=== PATIENT | female | born 1965 | race Asian ===

== ENCOUNTER 2018-01-08 05:04 | Day surgery (SDC) | payer OTHER ==
[2017-12-20 16:44] VITALS: BMI 22.3
[2018-01-08] MEDS ORDERED: PROPOFOL 20 ML ONE ×2 (08:44)
[2018-01-08] MEDS ORDERED: MIDAZOLAM HCL 2 MG/2 ML SINGLE DOSE VIAL ONE (08:44)
[2018-01-08] MEDS ORDERED: ceFAZolin SODIUM 1 GM VIAL ONE (08:44)
[2018-01-08] MEDS ORDERED: LIDOCAINE HCL/PF 2% SDV 5ML VIAL ONE (08:44)
--- NOTE | 2018-01-08 09:31 | HP ---
[facility]ellite [facility] - Chief Complaint History of Present Illness: 52 year old woman with renal failure stage 4. She is being prepared for dialysis. - Past Medical History Allergies/Adverse Reactions: Allergies Allergy/AdvReac Type Severity Reaction Status Date / Time No Known Allergies Allergy Verified 12/20/17 16:45 Cardiovascular: Yes: HTN ...LMP Comment: lmp 2014 - Current Medications Current Medications: Home Medications Medication Instructions Recorded Iron Ps Complex/B12/Folic Acid 1 each PO DAILY 11/09/11 [Ferrex 150 Forte Capsule] Amlodipine Besylate 5 mg PO DAILY 12/20/17 Satellite Physical Exam - Physical Examination Vital Signs: Vital Signs Period Temp Pulse Resp BP Sys/Pittman Pulse Ox Last 24 Hr 98.4 F-98.4 F 75-75 18-18 147-147/81-81 General Appearance: Alert & Oriented x3 ENT: Clear Lung: Clear to auscultation Heart: Regular rate & rhythm Abdomen: Soft Extremities: No edema Satellite Impression/Plan - Impression/Plan Impression: CKD stage 4 Operative Procedure: Creation AV fistula left arm Date to be Performed: 01/08/18
[2018-01-08] MEDS ORDERED: SODIUM CHLORIDE 0.9% P/F 10 ML VIAL IJ ONE (09:49)
[2018-01-08] MEDS ORDERED: LIDOCAINE HCL 1%, 10 MG/ML (20ML VIAL) INF ONE ×2 (10:03)
[2018-01-08] MEDS ORDERED: POVIDONE-IODINE OINTMENT 10% - 28.4 GM TUBE TP ONE (11:01)
--- NOTE | 2018-01-08 11:08 | OP ---
Operative Note - Note: Operative Date: 01/08/18 Pre-Operative Diagnosis: Renal failure Operation: Creation AV fistula left arm Findings: Patent upper arm cephalic vein, brachial artery Post-Operative Diagnosis: Same as Pre-op Surgeon: Bernard Castañeda Automotive Painter: Susan Bazzi Anesthesiologist/ACCOUNT DIRECTOR: Ashwin Kelly Anesthesia: Fractional Estimated Blood Loss (mls): 10
[2018-01-08] MEDS ORDERED: oxyCODONE HCL 5 MG TABLET PO PRN (11:10)
[2018-01-08] MEDS ORDERED: ACETAMINOPHEN 325 MG TABLET (FP) PO PRN (11:10)
[2018-01-08] MEDS ORDERED: ONDANSETRON 4 MG/2 ML VIAL IVPUSH PRN (11:15)
--- NOTE | 2018-01-08 11:19 | SURG ---
Surgery Statistician Note Statistician: Susan Bazzi PA-C Date of Service: 01/08/18 Diagnosis: Renal failure Procedure: Creation AV fistula left arm I was present for the entirety of the operative procedure. For further detail, please refer to operative report. Visit type - Case Type Case Type: Scheduled Admission - Emergency Emergency Visit: No - New patient This patient is new to me today: Yes Date on this admission: 01/08/18
[2018-01-08 12:00] VITALS: TEMP 98.8
[2018-01-08] MEDS ORDERED: ACETAMINOPHEN 325 MG TABLET (FP) ONE ×2 (13:45→13:46)
[2018-01-08] MEDS ORDERED: ACETAMINOPHEN 325 MG TABLET (FP) PO ONE (13:50)
[2018-01-08 14:19] VITALS: BP 138/75; PULSE 72
--- NOTE | 2018-01-23 06:56 | OP ---
DATE OF OPERATION: 01/08/2018 SURGEON: Bernard Rosas M.D. RADIO RECORDER: Ricardo Brandt PROCEDURE: Creation of arteriovenous fistula in left arm. PREOPERATIVE DIAGNOSIS: Renal failure. POSTOPERATIVE DIAGNOSIS: Renal failure. ANESTHESIA: Fractional. ANESTHESIOLOGIST: Ashwin Kelly M.D. OPERATIVE FINDINGS: The upper arm cephalic vein was patent with adequate diameter for fistula creation. The brachial artery had a strong pulse. OPERATIVE PROCEDURE: Following routine patient identification, side and site verification, intravenous sedation was established. The left arm was prepped with Chloraprep. Timeout was performed. One percent lidocaine was infiltrated in the antecubital fossa and a longitudinal incision made. Subcutaneous tissues were divided. The antecubital vein was identified and was carefully mobilized from the surrounding tissues. Side branches were ligated and divided. The vein was ligated distally and incised. It was distended with heparin and papaverine solution. Number 5 and number 8 feeding tubes were passed proximally without resistance. The wound was deepened through the muscle fascia and the distal brachial artery identified. It was encircled proximally and distally with vessel loops. The vein was then freed and spatulated. The artery was occluded with the vessel loops and opened on its superficial surface with a longitudinal arteriotomy measuring approximately 6 mm. The end of the vein was anastomosed to the side of the artery with running suture of 6-0 Prolene. Following completion of the suture line, the artery was allowed to back bleed and flush, and the vein was flushed with heparin solution. Suture line was completed and all vessels released. There was good flow to the anastomosis with a palpable thrill in the vein proximally. Bleeding from the suture line was controlled with Surgicel. The wound was then irrigated and closed with interrupted suture of 3-0 Vicryl and skin radha. Sterile dressings were applied, and the patient was taken to the recovery room in stable condition. BERNARD ROSAS M.D. [id number]
== END 2018-01-08 14:24 | disposition home or self-care (01) ==
LOC: JASU-SURG 05:04
PROVIDERS: ATTEND Surgery
PROC: 03180ZD Bypass Left Brachial Artery to Upper Arm Vein, Open Approach (ICD-10-PCS; principal; 2018-01-08 09:30)
DX: I12.0 Hypertensive chronic kidney disease with stage 5 chronic kidney disease or end stage renal disease (principal); D64.9 Anemia, unspecified; Q61.3 Polycystic kidney, unspecified
CPT/HCPCS: 94760

== ENCOUNTER 2019-01-16 20:28 | Emergency (ER) | payer OTHER ==
[2019-01-16 21:43] VITALS: TEMP 97.1; BMI 25.7
--- NOTE | 2019-01-16 21:54 | PDOC ---
History of Present Illness - General Chief Complaint: Dialysis Shunt Problem Stated Complaint: Dialysis Shunt Problem Time Seen by Provider: 01/16/19 21:54 History Source: Patient Exam Limitations: No Limitations - History of Present Illness Initial Comments: 01/16/19 21:55 53 year old female with a significant past medical history of hypertension, anemia, stage three polycystic kidney disease who presents with bleeding after dialysis access that lasted for approx 1 hour. Dialysis center called enrichment director Dr. Lavern Ovalles who recommended she come to the ED. She denies any other complaints. Denies use of blood thinner/ Past History - Past Medical History Allergies/Adverse Reactions: Allergies Allergy/AdvReac Type Severity Reaction Status Date / Time No Known Allergies Allergy Verified 01/16/19 21:41 Home Medications: Ambulatory Orders Iron Ps Complex/B12/Folic Acid [Ferrex 150 Forte Capsule] 1 each PO DAILY Amlodipine Besylate 5 mg PO DAILY 12/20/17 Acetaminophen W/ Codeine #3 [Tylenol # 3 -] 1 tab PO Q6H PRN #12 tablet MDD 4 Anemia: Yes Asthma: No Cancer: No Cardiac Disorders: No CVA: No Dementia: No Diabetes: No GI Disorders: No Disorders: Yes (polycystic kidney) HTN: Yes Hypercholesterolemia: No Liver Disease: No Seizures: No Thyroid Disease: No - Suicide/Smoking/Psychosocial Hx Smoking Status: No Smoking History: Never smoked Have you smoked in the past 12 months: No Number of Cigarettes Smoked Daily: 0 Information on smoking cessation initiated: No Hx Alcohol Use: No Drug/Substance Use Hx: No Substance Use Type: None Review of Systems - Review of Systems Able to Perform ROS?: Yes Comments:: 01/16/19 22:09 GENERAL/CONSTITUTIONAL: No fever or chills. No weakness. HEAD, EYES, EARS, NOSE AND THROAT: No change in vision. No ear pain or discharge. No sore throat. CARDIOVASCULAR: No chest pain or shortness of breath RESPIRATORY: No cough, wheezing, or hemoptysis. GASTROINTESTINAL: No nausea, vomiting, diarrhea or constipation. GENITOURINARY: No dysuria, frequency, or change in urination. MUSCULOSKELETAL: No joint or muscle swelling or pain. No neck or back pain. SKIN: No rash NEUROLOGIC: No headache, vertigo, loss of consciousness, or change in strength/ sensation. ENDOCRINE: No increased thirst. No abnormal weight change HEMATOLOGIC/LYMPHATIC: No anemia, or history of blood clots. ALLERGIC/IMMUNOLOGIC: No hives or skin allergy. Is the patient limited Slovenian proficient: No *Physical Exam - Vital Signs Last Vital Signs Temp Pulse Resp BP Pulse Ox 97.1 F L 79 18 134/76 98 01/16/19 21:41 01/16/19 21:41 01/16/19 21:41 01/16/19 21:41 01/16/19 21:41 - Physical Exam Comments: 01/16/19 22:09 GENERAL: Awake, alert, and fully oriented, in no acute distress HEAD: No signs of trauma, normocephalic, atraumatic EYES: EOMI, sclera anicteric, conjunctiva clear ENT: oropharynx clear without exudates. Moist mucosa NECK: Normal ROM, supple LUNGS: No distress, speaks full sentences, clear to auscultation bilaterally HEART: Regular rate and rhythm, normal S1 and S2, no murmurs, rubs or gallops, peripheral pulses normal and equal bilaterally. ABDOMEN: Soft, nontender, normoactive bowel sounds. No guarding, no rebound. No masses EXTREMITIES : Normal inspection, Normal range of motion, no edema. No clubbing or cyanosis. + L arm fistula with small amount of oozing blood NEUROLOGICAL: Cranial nerves II through XII grossly intact. Normal speech, normal gait, no focal sensorimotor deficits SKIN: Warm, Dry, normal turgor, no rashes or lesions noted 01/16/19 22:10 Medical Decision Making - Medical Decision Making 01/16/19 22:10 ED Course: Will maintain pressure dressing overnight. If patient continues to bleed will give strict return precautions. Patient expresses understanding of plan. *DC/Admit/Observation/Transfer Diagnosis at time of Disposition: Bleeding - Discharge Dispostion Disposition: HOME Condition at time of disposition: Stable Decision to Admit order: No - Referrals Referrals: Ana Ovalles MD [Primary Care Provider] - - Patient Instructions Printed Discharge Instructions: DI for Arteriovenous Fistula for Dialysis Additional Instructions: You were seen in the ED for some bleeding after dialysis access. You were evaluated and it is advised that you continue placing pressure on the wound overnight. If you continue to experience bleeding overnight or in the morning return to the ED immediately. If you experience numbness or tingling in the L arm loosen your dressing, if these symptoms persist return to the ED immediately. If bleeding stops follow up with your Primary Care Physician and your Construction Worker within 1-3 days. - Post Discharge Activity
[2019-01-16] MEDS ORDERED: amLODIPine BESYLATE 5 MG TABLET (FP) PO ONE (23:16)
[2019-01-16] MEDS ORDERED: amLODIPine BESYLATE 5 MG TABLET (FP) ONE (23:25)
[2019-01-17 00:30] VITALS: BP 132/78; PULSE 74
== END 2019-01-17 00:31 | disposition home or self-care (01) ==
LOC: JER 20:28
DX: T82.838A Hemorrhage due to vascular prosthetic devices, implants and grafts, initial encounter (principal); Y82.8 Other medical devices associated with adverse incidents; Y92.018 Other place in single-family (private) house as the place of occurrence of the external cause; I12.0 Hypertensive chronic kidney disease with stage 5 chronic kidney disease or end stage renal disease; N18.6 End stage renal disease; N17.8 Other acute kidney failure; Z99.2 Dependence on renal dialysis; D64.9 Anemia, unspecified; Q61.3 Polycystic kidney, unspecified
CPT/HCPCS: 99282-25

== ENCOUNTER 2019-05-04 14:15 | Emergency (ER) | payer OTHER ==
[2019-05-04 14:21] VITALS: BP 158/78; PULSE 70; TEMP 98.2; BMI 21.9
--- NOTE | 2019-05-04 14:21 | PDOC ---
Rapid Medical Evaluation Medical Evaluation: Allergies Allergy/AdvReac Type Severity Reaction Status Date / Time No Known Allergies Allergy Verified 01/16/19 21:41 I have performed a brief in-person evaluation of this patient. The patient presents with a chief complaint of: hx of ESRD (last dialysis Saturday ; is due today), polycystic kidney disease, c/o hematuria from yesterday; denies fever, chills, n/v, abd pain, dysuria Pertinent physical exam findings: In nad, abdomen soft/NT, no CVA tenderness I have ordered the following: labs The patient will proceed to the ED for further evaluation. 05/04/19 14:18
--- NOTE | 2019-05-04 16:36 | PDOC ---
History of Present Illness - General Chief Complaint: Hematuria Stated Complaint: BLOOD IN URINE Time Seen by Provider: 05/04/19 14:18 History Source: Patient Exam Limitations: No Limitations - History of Present Illness Initial Comments: 05/04/19 16:44 54 year old female with PMH PCKD, ESRD on HD (M/W/F), anemia presented to ED for painless hematuria since yesterday. Pt reported she noticed blood in her urine yesterday, which has not resolved, prompting her to call her poultry raiser Dr. Ovalles, who advised her to come to the ED and miss her dialysis scheduled for 1800 today. Pt denied abdominal pain, fever, nausea, vomiting, diarrhea, vaginal bleeding, dysuria, increased urinary frequency, chest pain, shortness of breath. Pt reported last dialysis was Saturday. Allergies: NKDA Past History - Past Medical History Allergies/Adverse Reactions: Allergies Allergy/AdvReac Type Severity Reaction Status Date / Time No Known Allergies Allergy Verified 05/04/19 14:21 Home Medications: Ambulatory Orders Iron Ps Complex/B12/Folic Acid [Ferrex 150 Forte Capsule] 1 each PO DAILY Amlodipine Besylate 5 mg PO DAILY 12/20/17 Acetaminophen W/ Codeine #3 [Tylenol # 3 -] 1 tab PO Q6H PRN #12 tablet MDD 4 Anemia: Yes Asthma: No Cancer: No Cardiac Disorders: No CVA: No COPD: No Dementia: No Diabetes: No GI Disorders: No Disorders: Yes (polycystic kidney, DIALYSIS) HTN: Yes Hypercholesterolemia: No Liver Disease: No Seizures: No Thyroid Disease: No Other medical history: LEFT ARM FISTULA - Suicide/Smoking/Psychosocial Hx Smoking Status: No Smoking History: Never smoked Have you smoked in the past 12 months: No Number of Cigarettes Smoked Daily: 0 Information on smoking cessation initiated: No Hx Alcohol Use: No Drug/Substance Use Hx: No Substance Use Type: None Review of Systems - Review of Systems Able to Perform ROS?: Yes Comments:: 05/04/19 16:35 General: denied fever, chills, generalized weakness. HEENT: denied sore throat, rhinorrhea, ear pain. Cardiovascular: denied chest pain, palpitations, syncope, diaphoresis. Respiratory: denied shortness of breath, cough, sputum production, hemoptysis. Gastrointestinal: denied abdominal pain, nausea, vomiting, diarrhea, constipation, blood in stool. Genitourinary: admitted to hematuria. denied dysuria, increased urinary frequency, urinary incontinence, flank pain. Back: denied back pain. Musculoskeletal: denied joint pain, muscle pain, joint swelling. Neurological: denied headache, dizziness, numbness, tingling, weakness. Integumentary: denied rash, laceration, abrasion. Hematologic/Lymphatic: denied bruising or bleeding. *Physical Exam - Vital Signs Last Vital Signs Temp Pulse Resp BP Pulse Ox 98.2 F 70 19 158/78 98 05/04/19 14:19 05/04/19 14:19 05/04/19 14:19 05/04/19 14:19 05/04/19 14:19 - Physical Exam Comments: 05/04/19 16:35 Constitutional: Well-nourished, Well-developed, appearing stated age. ambulated unassisted. HEENT: head is normocephalic, atraumatic. EOMI. PERRLA. Neck: supple. Full ROM. Cardiovascular: regular heart rhythm. no murmurs. no pericardial friction rub. Respiratory: clear to auscultation bilaterally. no crackles, rhonchi or wheezing. no stridor. Gastrointestinal: soft, nontender. normal bowel sounds. no rebound, guarding, masses. Back: negative CVA tenderness bilaterally. Extremities: peripheral pulses intact. no lower extremity edema. Neurological: CN 2-12 grossly intact. moves all four extremities. Psych: awake, alert, oriented x3. follows commands. answers questions appropriately. ED Treatment Course - LABORATORY CBC & Chemistry Diagram: 05/04/19 17:50 05/04/19 17:50 Medical Decision Making - Medical Decision Making 05/04/19 16:47 54 year old female with above PMH presented to ED for painless hematuria. Last dialysis saturday. Initial Vital Signs Temp Pulse Resp BP Pulse Ox 98.2 F 70 19 158/78 98 05/04/19 14:19 05/04/19 14:19 05/04/19 14:19 05/04/19 14:19 05/04/19 14:19 Afebrile. No tachycardia. No tachypnea. Mild hypertension. No hypoxia on room air. Labs ordered: UA/UC, urine Medications ordered: none Imaging ordered: bladder US, kidney US 05/04/19 17:33 Urine Test Results Urine Color [place] 05/04/19 16:58 Urine Appearance Clear 05/04/19 16:58 Urine pH 6.0 (5.0-8.0) 05/04/19 16:58 Ur Specific Bryan 1.008 (1.010-1.035) L 05/04/19 16:58 Urine Protein 1+ (NEGATIVE) H 05/04/19 16:58 Urine Glucose (UA) Negative (NEGATIVE) 05/04/19 16:58 Urine Ketones Negative (NEGATIVE) 05/04/19 16:58 Urine Blood 3+ (NEGATIVE) H 05/04/19 16:58 Urine Nitrite Negative (NEGATIVE) 05/04/19 16:58 Urine Bilirubin Negative (NEGATIVE) 05/04/19 16:58 Ur Leukocyte Esterase Negative (NEGATIVE) 05/04/19 16:58 Negative for UTI. Positive for hematuria. 05/04/19 18:30 US report: Unit Number: [id number] EXAM#: TYPE/EXAM: RESULT: US/KIDNEY / RENAL US US/PELVIC / BLADDER US HISTORY PROVIDED: Painless hematuria. Real time examination of the kidneys and urinary bladder demonstrates the following: The kidneys are markedly enlarged with the right kidney measuring 21.4 x 11.0 x 10.0 cm and the left kidney measuring 22.3 x 11.5 x 9.7 cm. There are multiple cysts of varying sizes throughout both kidneys which is consistent with the clinical history of adult polycystic kidney disease. There is no evidence of hydronephrosis or acute pathology. Evaluation of the urinary bladder is technically inadequate as the bladder is completely empty. IMPRESSION: Findings consistent with adult polycystic kidney disease. Please see above discussion. Reported By: Juan R Oconnor MD 05/04/19 1733 CMP Sodium 139 mmol/L (136-145) 05/04/19 17:50 Potassium 3.9 mmol/L (3.5-5.1) 05/04/19 17:50 Chloride 106 mmol/L (98-107) 05/04/19 17:50 Carbon Dioxide 25 mmol/L (21-32) 05/04/19 17:50 Anion Gap 9 MMOL/L (8-16) 05/04/19 17:50 BUN 75.1 mg/dL (7-18) H 05/04/19 17:50 Creatinine 5.3 mg/dL (0.55-1.3) H 05/04/19 17:50 Est GFR (CKD-EPI)AfAm 9.71 05/04/19 17:50 Est GFR (CKD-EPI)NonAf 8.38 05/04/19 17:50 Random Glucose 79 mg/dL (74-106) 05/04/19 17:50 Calcium 8.7 mg/dL (8.5-10.1) 05/04/19 17:50 Total Bilirubin 0.3 mg/dL (0.2-1) 05/04/19 17:50 AST 26 U/L (15-37) 05/04/19 17:50 ALT 47 U/L (13-61) 05/04/19 17:50 Alkaline Phosphatase 85 U/L (45-117) 05/04/19 17:50 Total Protein 7.1 g/dl (6.4-8.2) 05/04/19 17:50 Albumin 3.8 g/dl (3.4-5.0) 05/04/19 17:50 Cr elevated, but pt is ESRD. No hyperkalemia. Pending CBC. 05/04/19 18:39 CBC WBC 4.1 K/mm3 (4.0-10.0) 05/04/19 17:50 RBC 3.61 M/mm3 (3.60-5.2) 05/04/19 17:50 Hgb 11.9 GM/dL (10.7-15.3) 05/04/19 17:50 Hct 35.9 % (32.4-45.2) D 05/04/19 17:50 MCV 99.5 fl (80-96) H 05/04/19 17:50 MCH 33.0 pg (25.7-33.7) 05/04/19 17:50 MCHC 33.2 g/dl (32.0-36.0) 05/04/19 17:50 RDW 12.9 % (11.6-15.6) 05/04/19 17:50 Plt Count 153 K/MM3 (134-434) 05/04/19 17:50 MPV 10.7 fl (7.5-11.1) 05/04/19 17:50 Absolute Neuts (auto) 3.0 K/mm3 (1.5-8.0) 05/04/19 17:50 Neutrophils % 72.6 % (42.8-82.8) 05/04/19 17:50 Lymphocytes % 18.8 % (8-40) 05/04/19 17:50 Monocytes % 6.3 % (3.8-10.2) 05/04/19 17:50 Eosinophils % 1.9 % (0-4.5) 05/04/19 17:50 Basophils % 0.4 % (0-2.0) 05/04/19 17:50 Nucleated RBC % 0 % (0-0) 05/04/19 17:50 No leukocytosis. No anemia. No thrombocytopenia. INR, PTT INR 0.93 (0.83-1.09) 05/04/19 17:50 Labs within normal limits - no FELICITY, no leukocytosis, no anemia, no supratherapeutic INR. US imaging displays PCKD, no acute findings. Urine negative for UTI/. Painless hematuria without obvious infectious etiology. Pt reported she can do dialysis tomorrow and Weds to make up for missing dialysis today. Pt reported she preferred to be discharged and would return to the ED if she felt symptoms of fluid overload - chest pain, shortness of breath. Pt discharged with copies of imaging reports and recommendation for dialysis tomorrow with close follow up with Dr. Ovalles/PCP. Pt agreed with plan for care. *DC/Admit/Observation/Transfer Diagnosis at time of Disposition: Painless hematuria - Discharge Dispostion Disposition: HOME Condition at time of disposition: Stable Decision to Admit order: No - Referrals Referrals: Ana Ovalles MD [Primary Care Provider] - - Patient Instructions Printed Discharge Instructions: DI for Hematuria Additional Instructions: You were seen today for blood in urine - hematuria. Your lab work showed blood in your urine, without any sign of infection from your prior lab work. Your US imaging is included with your discharge paperwork. It is advised that you go to dialysis tomorrow morning as soon as possible. Let them know you have missed a day. If you develop symptoms of chest pain, shortness of breath, lightheadedness, increasing lower leg swelling return to the Emergency Department immediately. Follow up with Dr. Ovalles within 3 days. Your care is not complete until you follow up. Call his office first thing tomorrow morning. Return to the Emergency Department for chest pain, shortness of breath, lightheadedness, increasing lower leg swelling, fever, vomiting, chills/sweats, increasing abdominal pain or any other new, worsening or concerning symptoms. - Post Discharge Activity Forms/Work/School Notes: Back to Work
[2019-05-04 17:27] LABS: EPI CELLS 0.3 /HPF (0-5/HPF); HYALINE CASTS 1 /lpf (0-8); URINE APPEARANCE CLEAR; URINE BACTERIA 0.8 /hpf (NEGATIVE); URINE BILIRUBIN NEGATIVE (NEGATIVE); URINE COLOR ORANGE; URINE GLUCOSE (UA) NEGATIVE (NEGATIVE); URINE KETONE NEGATIVE (NEGATIVE); URINE LEUK ESTERASE NEGATIVE (NEGATIVE); URINE NITRITE NEGATIVE (NEGATIVE); URINE PROTEIN 1+ (NEGATIVE); URINE RBC 97 /hpf (0-4); URINE UROBILINOGEN 0.2 mg/dL (0.2-1.0); URINE WBC 1 /hpf (0-5)
--- NOTE | 2019-05-04 17:46 | PDOC ---
Documentation entered by Anatoliy Roberts SCRIBE, acting as scribe for Kayla Leonardo MD. Kayla Leonardo MD: This documentation has been prepared by the candidoeAlejandra Elijah, SCRIBE, under my direction and personally reviewed by me in its entirety. I confirm that the documentation accurately reflects all work, treatment, procedures, and medical decision making performed by me. Attending Attestation - Resident Resident Name: Lupis Morales - ED Attending Attestation I have performed the following: I have examined & evaluated the patient, The case was reviewed & discussed with the resident, I agree w/resident's findings & plan - HPI HPI: 05/04/19 18:42 Patient is a 54 year old female with a significant past medical history of PMH PCKD, ESRD on HD (M/W/F), anemia who presents to the ED with Hematuria lasting for x1 day. Patient called her PCP and was told to come into the ED to be evaluated. Denies dysuria. Allergies: NKA PCP: Dr. Ana Ovalles - Physicial Exam PE: 05/04/19 18:42 Agree with resident's Exam - Medical Decision Making 05/04/19 17:44 54-year-old female who sees dialysis on Saturday, Saturday and Fridays for hematuria and Dr. Lavern Rizvi told to go to the emergency department for renal ultrasound and UA. renal ultrasound was consistent with polycystic kidney disease shows bilaterally enlarged kidneys. There is no hydronephrosis and no stones UA he reports 3+ blood and 97,000, RBCs 05/04/19 17:45 potassium is normal 05/04/19 18:45 Dr Lavern Rizvi and the plan is for this pt to have her dialysis tomorrow imp polycystic kidney disease/ ESRD 05/04/19 18:46
[2019-05-04 18:04] LABS: BASO % 0.4 % (0-2.0); EOS % 1.9 % (0-4.5); HEMATOCRIT 35.9 % (32.4-45.2); HEMOGLOBIN 11.9 GM/dL (10.7-15.3); LYMPH % 18.8 % (8-40); MCHC 33.2 g/dl (32.0-36.0); MEAN CELL VOLUME 99.5 fl (80-96); MEAN PLT VOLUME 10.7 fl (7.5-11.1); MONO % 6.3 % (3.8-10.2); NEUT % 72.6 % (42.8-82.8); PLATELET COUNT 153 K/MM3 (134-434); RBC 3.61 M/mm3 (3.60-5.2); RDW 12.9 % (11.6-15.6); WHITE BLOOD COUNT 4.1 K/mm3 (4.0-10.0)
[2019-05-04 18:23] LABS: YEAST NONE SEEN (NEGATIVE)
[2019-05-04 18:26] LABS: ALBUMIN 3.8 g/dl (3.4-5.0); BILIRUBIN,TOTAL 0.3 mg/dL (0.2-1); BLOOD UREA NITROGEN 75.1 mg/dL (7-18); CALCIUM 8.7 mg/dL (8.5-10.1); CREATININE 5.3 mg/dL (0.55-1.3); POTASSIUM 3.9 mmol/L (3.5-5.1); TOT PROT 7.1 g/dl (6.4-8.2)
[2019-05-04 18:34] LABS: INR 0.93 (0.83-1.09)
[2019-05-04 18:37] LABS: ACTIVATED PTT 36.1 SECONDS (25.2-36.5)
== END 2019-05-04 19:02 | disposition home or self-care (01) ==
LOC: JER 14:15
DX: Q61.2 Polycystic kidney, adult type (principal); D64.9 Anemia, unspecified; N18.6 End stage renal disease; Z99.2 Dependence on renal dialysis
CPT/HCPCS: 36415; 76775-TC; 76856-TC; 80053; 81003; 84703; 85025; 85610; 85730; 87086; 99281-25

== ENCOUNTER 2020-04-26 16:30 | Inpatient (IN) | payer OTHER ==
--- NOTE | 2020-04-26 17:14 | PDOC ---
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 Per patient, she was at her dialysis center today when staff noticed a left sided lower facial droop. Pt states that she went to the bathroom to take a look and did not feel that she had a droop. EMS called and patient brought into the ED. Pt states that she had never had a stroke before. No weakness/numbness/tingling. No vision changes. No headache. No neck pain. No chest pain/shortness of breath/abdominal pain/leg swelling/diarrhea/dysuria. SocHx: never smoker Past History - Medical History Allergies/Adverse Reactions: Allergies Allergy/AdvReac Type Severity Reaction Status Date / Time No Known Allergies Allergy Verified 05/04/19 14:21 Home Medications: Ambulatory Orders Iron Ps Complex/B12/Folic Acid [Ferrex 150 Forte Capsule] 1 each PO DAILY 11/09/11 Amlodipine Besylate 5 mg PO DAILY 12/20/17 Aspirin Coated [Ecotrin -] 81 mg PO DAILY #30 tablet.ec 04/27/20 Anemia: Yes Asthma: No Cancer: No Cardiac Disorders: No CVA: No COPD: No Dementia: No Diabetes: No GI Disorders: No Disorders: Yes (polycystic kidney, DIALYSIS) HTN: Yes Hypercholesterolemia: No Liver Disease: No Seizures: No Thyroid Disease: No - Psycho-Social/Smoking History Smoking Status: No Smoking History: Never smoked Have you smoked in the past 12 months: No Number of Cigarettes Smoked Daily: 0 Review of Systems - Review of Systems Comments:: GENERAL/CONSTITUTIONAL: No fever or chills. No weakness._ HEAD, EYES, EARS, NOSE AND THROAT: No change in vision. No change in hearing. No sore throat._ CARDIOVASCULAR: No chest pain or shortness of breath_ RESPIRATORY: Denies cough, hemoptysis_ GASTROINTESTINAL: No nausea, vomiting, diarrhea or constipation._ GENITOURINARY: No dysuria, frequency, or change in urination._ MUSCULOSKELETAL: No joint or muscle swelling or pain. No neck or back pain._ SKIN: No rash_ NEUROLOGIC: No headache, vertigo, loss of consciousness, or change in strength/sensation._ ENDOCRINE: No increased thirst. No abnormal weight change_ HEMATOLOGIC/LYMPHATIC: No anemia, easy bleeding, or history of blood clots._ ALLERGIC/IMMUNOLOGIC: No hives or skin allergy._ *Physical Exam - Physical Exam GENERAL: Awake, alert, and oriented to person/place/time, in no acute distress_ HEAD: No signs of trauma, normocephalic, atraumatic _ EYES: PERRLA, EOMI, sclera anicteric, conjunctiva clear_ ENT: Hearing grossly normal, nares patent, oropharynx clear without exudates. No uvular deviation. Moist mucosa_ NECK: Normal ROM, supple, no lymphadenopathy, JVD, or masses_ LUNGS: No distress, speaks in full sentences, clear to auscultation bilaterally _ HEART: Regular rate and rhythm, normal S1 and S2, no murmurs appreciated, peripheral pulses normal and equal bilaterally._ ABDOMEN: Soft, nontender, normoactive bowel sounds. No guarding, no rebound. No masses_ EXTREMITIES: Normal inspection, Normal range of motion, no edema. No clubbing or cyanosis_ NEUROLOGICAL: No facial asymmetry noted. CN II-XII tested and intact. Sensation intact to sharp/dull differentiation in all extremities. Motor: Normal tone and bulk. No abnormal movements appreciated. No pronator drift. Strength tested and 5/5 in bilateral wrist flexion/extension, elbow flexion/extension, shoulder abduction, straight leg raise, knee flexion/extension, ankle dorsiflexion/plantarflexion. Patient ambulates with a steady gait. Coordination: Finger to nose and heel to diop testing intact bilaterally. SKIN: Warm, Dry, normal turgor, no rashes or lesions noted_ NIH Stroke Scale - Last Known Well Date/Time & Onset Date Last Known Well: 04/26/20 Time Last Known Well: 12:00 - Initial Evaluation Level of consciousness: Alert Ask patient the month and their age: Answers both correctly Ask patient to open & close eyes; make fist and let go: Obeys both correctly Best gaze (horizontal eye movement): Normal Visual field testing: No visual field loss Facial paresis (Show teeth/raise eyebrows/close eyes tight): Normal symmetrical movement Motor Function: Left Arm: Normal Motor Function: Right Arm: Normal (extends arm 90 (or 45) degrees for 10 seconds without drift Motor Function: Left Leg: Normal (extends leg 30 degrees for 5 seconds without drift) Motor Function: Right Leg: Normal (extends leg 30 degrees for 5 seconds without drift) Limb Ataxia: No ataxia Sensory(Use pinprick test arms,legs,trunk,face/side to side): Normal Best language (Describe picture, name items, read sentences): No Aphasia Dysarthria (read several words): Normal articulation Extinction and Inattention: No abnormality - Total Score NIH Stroke Scale Score: 0 tPA Exclusion checklist 3-4.5h - Time Elapsed Date last known well: 04/26/20 Time last known well: 12:00 Elaspsed time: 1 Day(s) and 9 Hour(s) and 25 Minutes - Thrombolytic Therapy Candidate Is patient eligible for thrombolytic therapy: Yes - Exclusion Criteria 3-4.5 hr SBP greater than 185 or DBP greater than 110mmHg despite tx: No Recent IC/spinal surgery,head trauma or stroke<3mos.: No Hx IC hemorrhage, IC neoplasm, AV malformation or aneurysm: No Active internal bleeding: No Blding diathesis(low plt ct, inc PTT,INR>1.7 or use of NOAC): No Symptoms suggest subarachnoid hemorrhage: No CT demonstrates multilobar infarct(>1/3 cerebral hemiphere): No Arterial puncture at noncompressible site in previous 7 days: No Blood glucose concentration less than 50mg/dL (2.7mmol/L): No - Relative Exclusion Criteria 3-4.5 hr Care team unable to determine eligibility: No IV/IA thrombolysis/thrombectomy @ another hosp prior arrival: No Life expectancy <1 yr or severe co-morbid illness: No : No Patient/family refused: No Stroke severity too mild (non-disabling): Yes Recent acute NV (w/in previous 3 months): No Seizure at onset with postictal residual neuro impairments: No Major surgery or serious trauma w/in previous 14 days: No Recent GI or hemorrhage (w/in previous 21 days): No - Add'l Relative Exclusion 3-4.5 hr Age > 80: No Hx of both diabetes AND prior ischemic stroke: No Taking an oral anticoagulant regardless of INR: No Severe Stroke (NIHSS >25): No - Ineligibility reason(s) Reasons No tPA given: See reason(s) noted above (non disabling ) Critical Care Time/MDM Note - Medical Decision Making Note: 55F hx of ADPKD on HD and HTN presenting today with reported left sided facial droop per dialysis center staff. -adult stroke work up 04/26/20 17:13 CT head negative for acute intracranial pathology. No significant interval change compared to 2011. 04/26/20 17:20 EKG shows 75 bpm, NSR, LAD (not seen on prior?), NV 172, QTc 422, no ST elevation/depression. 04/26/20 19:30 Pt s/o to Dr. Branham pending lab results and admission. Discharge - Discharge Information Problems reviewed: Yes Clinical Impression/Diagnosis: End stage chronic kidney disease, Hyperkalemia, Facial weakness Condition: Stable - Admission Yes - Follow up/Referral - Patient Discharge Instructions - Post Discharge Activity
--- NOTE | 2020-04-26 17:34 | PDOC ---
Attending Attestation - Resident Resident Name: Talha Slainas - ED Attending Attestation I have performed the following: I have examined & evaluated the patient, The case was reviewed & discussed with the resident, I agree w/resident's findings & plan, Exceptions are as noted - HPI HPI: 04/26/20 18:20 55 y F hx of polycystic kidney currently on diualysis (, Sa, last dialysis on sat) - Patient was going to her dialysis session when there was a possible concern of CVA. The patient states she felt fine however the nurses there thought maybe she had a small left facial droop, the patient went to the bathroom to look And stated that her face looks normal to her. She did have a Subconjunctival hemorrhage which says started this morning and that she gets occasionally it does not bother her and she has no changes in vision or any pain associated with it. The patient otherwise denies any symptoms including lightheadedness, palpitations, headache, neck pain, back pain, chest pain, abdominal pain, focal numbness, tingling, weakness, fever, chills, cough, diarrhea. Patient states they would not dialyze her until she was evaluated. - Physicial Exam PE: 04/26/20 18:31 exam: GENERAL: The patient is awake, alert, and fully oriented, Nontoxic - in no acute distress. HEAD: Normocephalic, atraumatic. EYES: extraocular movements intact, sclera anicteric,subconjunnctival hemorrhage ENT: Normal voice, Moist mucous membranes. NECK: Normal range of motion, supple LUNGS: Breath sounds equal, clear to auscultation bilaterally. No wheezes, no rhonchi, no rales. HEART: Regular rate and rhythm, normal S1 and S2 without murmur, rub or gallop. ABDOMEN: Soft, nontender, No guarding, no rebound. No CVA tenderness EXTREMITIES: Normal range of motion, no edema, LUE fistula w/ thrill. NEUROLOGICAL: No facial assymetry, Normal speech, PSYCH: Normal mood, normal affect. SKIN: Warm, Dry, normal turgor, NEURO: Mental status: The patient is oriented x3. Cranial nerves: Cranial nerves II through XII are intact Motor: The upper extremities are 5 over 5 in all muscle groups. The lower extremities are 5 over 5 in all muscle groups. Negative pronator drift Sensation: Sensation is intact to light touch throughout. romberg negative Cerebellar: Pumezy-bcepwk-[id number] is normal in both upper extremities. Hoyg-mubj-ojmv is normal in both lower extremities. rapid alternating movements are normal. Reflexes: 2+ and symmetric in the upper and lower extremities. Gait: Normal. Heel and toe walking are normal. Tandem gait is normal. - Medical Decision Making 04/26/20 18:33 55 history of hypertension, end-stage renal secondary to polycystic kidneys on dialysis, presents with concern for possible facial droop by dialysis center however the patient states that she had her face looks normal to her. Will obtain CT head, blood work Patient's neurologic exam is normal Will obtain blood work to evaluate metabolic status And need for dialysis Heart Score/ECG Review - ECG Impressions Comment:: 04/26/20 18:34 Twelve-lead EKG was performed and reviewed by me. There is normal sinus rhythm with a normal rate. Rate of 75 Left axis deviation Q waves in anterior and inferior leads Discharge - Discharge Information Problems reviewed: Yes Clinical Impression/Diagnosis: End stage chronic kidney disease, Hyperkalemia, Facial weakness Condition: Improved - Admission Yes - Follow up/Referral - Patient Discharge Instructions - Post Discharge Activity
[2020-04-26 17:40] VITALS: BMI 24.0
[2020-04-26 18:30] LABS: BASO % 0.7 % (0-2.0); HEMATOCRIT 32.6 % (32.4-45.2); HEMOGLOBIN 10.8 GM/dL (10.7-15.3); LYMPH % 16.5 % (8-40); MCH 34.2 pg (25.7-33.7); MCHC 33.1 g/dl (32.0-36.0); MEAN CELL VOLUME 103.2 fl (80-96); MEAN PLT VOLUME 10.2 fl (7.5-11.1); MONO % 8.9 % (3.8-10.2); NEUT % 70.9 % (42.8-82.8); PLATELET COUNT 159 K/MM3 (134-434); RBC 3.16 M/mm3 (3.60-5.2); WHITE BLOOD COUNT 4.2 K/mm3 (4.0-10.0)
[2020-04-26 18:36] LABS: INR 0.92 (0.83-1.09); PROTHROMBIN TIME (PATIENT) 10.9 SEC (9.7-13.0)
[2020-04-26 18:56] LABS: ALBUMIN 3.6 g/dl (3.4-5.0); ALK PHOS 51 U/L (45-117); ANION GAP 11 MMOL/L (8-16); BILIRUBIN,TOTAL 0.2 mg/dL (0.2-1); CALCIUM 8.8 mg/dL (8.5-10.1); CHLORIDE 105 mmol/L (98-107); CHOLESTEROL 149 mg/dL (50-200); CO2 24 mmol/L (21-32); GLUCOSE,RANDOM 102 mg/dL (74-106); HDL CHOLESTEROL 91 mg/dL (40-60); LDL CHOLESTEROL (ONLY SJRH) 44 mg/dL (5-100); POTASSIUM 5.5 mmol/L (3.5-5.1); SGOT/AST 10 U/L (15-37); SGPT/ALT 16 U/L (13-61); SODIUM 140 mmol/L (136-145); TOT PROT 6.9 g/dl (6.4-8.2); TRIGLYCERIDES 67 mg/dL (0-150)
[2020-04-26 19:05] LABS: CREATININE 7.9 mg/dL (0.55-1.3)
--- NOTE | 2020-04-26 19:49 | HP ---
CHIEF COMPLAINT:here for evaluation of left sided droop PCP:Dr. 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 Lavern Maria HISTORY OF PRESENT ILLNESS: 55 year old female with a past medical history of polycystic kidney disease on hemodialysis- (//Sat) and hypertension who presented today by ambulance for evaluation of left sided facial droop. Per patient, she was at her dialysis center today when staff noticed a left sided lower facial droop. Patient states that she went to the bathroom to take a look and she did not feel that she had a droop. She did not have dialysis today as reported . EMS was called and patient brought into the ED. Patient reported she had never had a str joy before and denied weakness/numbness/tingling, vision changes or headache, chest pain/shortness of breath/abdominal pain/leg swelling/diarrhea/dysuria. ER course workup: (1) CT scan of head negative (2) Lab findings notable for creatinine 7.9 , potassium 5.5. Recent Travel: no PAST MEDICAL HISTORY: polycystic kidney disease hypertension PAST SURGICAL HISTORY: denies Family History Mother had [place] ,stroke and polycystic kidney disease. Father from natural causes. Social History: Smoking:never Alcohol:no Drugs: no Allergies No Known Allergies Allergy (Verified 05/04/19 14:21) HOME MEDICATIONS: Home Medications Medication Instructions Recorded Iron Ps Complex/B12/Folic Acid 1 each PO DAILY 11/09/11 [Ferrex 150 Forte Capsule] Amlodipine Besylate 5 mg PO DAILY 12/20/17 REVIEW OF SYSTEMS CONSTITUTIONAL: Absent: fever, chills, diaphoresis, generalized weakness, malaise, loss of appetite, weight change HEENT: Absent: rhinorrhea, nasal congestion, throat pain, throat swelling, difficulty swallowing, mouth swelling, ear pain, eye pain, visual changes CARDIOVASCULAR: Absent: chest pain, syncope, palpitations, irregular heart rate, lightheadedness, peripheral edema RESPIRATORY: Absent: cough, shortness of breath, dyspnea with exertion, orthopnea, wheezing, stridor, hemoptysis GASTROINTESTINAL: Absent: abdominal pain, abdominal distension, nausea, vomiting, diarrhea, constipation, melena, hematochezia GENITOURINARY: Absent: dysuria, frequency, urgency, hesitancy, hematuria, flank pain, genital pain MUSCULOSKELETAL: Absent: myalgia, arthralgia, joint swelling, back pain, neck pain SKIN: Absent: rash, itching, pallor HEMATOLOGIC/IMMUNOLOGIC: Absent: easy bleeding, easy bruising, lymphadenopathy, frequent infections ENDOCRINE: Absent: unexplained weight gain, unexplained weight loss, heat intolerance, cold intolerance NEUROLOGIC: Absent: headache, focal weakness or paresthesias, dizziness, unsteady gait, seizure, mental status changes, bladder or bowel incontinence PSYCHIATRIC: Absent: anxiety, depression, suicidal or homicidal ideation, hallucinations. PHYSICAL EXAMINATION Vital Signs - 24 hr 04/26/20 16:30 Temperature 98.0 F Pulse Rate 83 Respiratory 15 Rate Blood Pressure 122/82 O2 Sat by Pulse 100 Oximetry (%) General no acute distress Vital signs reviewed afebrile Neuro no focal deficits moving upper and lower extremities speech clear no facial droop or grimace seen Lungs CTA nonlabored breathing effort no rales no wheezing Heart s1s2 rate regular and normal Abdomen soft nontender nondistended Extremities warm tot ouch no pitting edema no cyanosis Laboratory Results - last 24 hr 04/26/20 04/26/20 04/26/20 18:05 18:05 18:05 WBC 4.2 RBC 3.16 L Hgb 10.8 Hct 32.6 MCV 103.2 H MCH 34.2 H MCHC 33.1 RDW 14.0 Plt Count 159 MPV 10.2 Absolute Neuts (auto) 3.0 Neutrophils % 70.9 Lymphocytes % 16.5 Monocytes % 8.9 Eosinophils % 3.0 Basophils % 0.7 Nucleated RBC % 0 PT with INR 10.90 INR 0.92 PTT (Actin FS) 32.0 Sodium 140 Potassium 5.5 H Chloride 105 Carbon Dioxide 24 Anion Gap 11 BUN 57.0 H Creatinine 7.9 H* Est GFR (CKD-EPI)AfAm 5.95 Est GFR (CKD-EPI)NonAf 5.13 Random Glucose 102 Calcium 8.8 Total Bilirubin 0.2 AST 10 L ALT 16 Alkaline Phosphatase 51 Creatine Kinase 68 Troponin I < 0.02 Total Protein 6.9 Albumin 3.6 Triglycerides 67 Cholesterol 149 Total LDL Cholesterol 44 HDL Cholesterol 91 H Blood Type Antibody Screen 04/26/20 18:05 WBC RBC Hgb Hct MCV MCH MCHC RDW Plt Count MPV Absolute Neuts (auto) Neutrophils % Lymphocytes % Monocytes % Eosinophils % Basophils % Nucleated RBC % PT with INR INR PTT (Actin FS) Sodium Potassium Chloride Carbon Dioxide Anion Gap BUN Creatinine Est GFR (CKD-EPI)AfAm Est GFR (CKD-EPI)NonAf Random Glucose Calcium Total Bilirubin AST ALT Alkaline Phosphatase Creatine Kinase Troponin I Total Protein Albumin Triglycerides Cholesterol Total LDL Cholesterol HDL Cholesterol Blood Type O POSITIVE Antibody Screen Negative ASSESSMENT/PLAN: 55 year old female with a past medical history of polycystic kidney disease on hemodialysis- (//Sat) and hypertension who presented from hemodialysis for evaluation of left sided facial droop noticed by staff. CT scan of head negative. She is being admitted for evaluation of possible TIA . 1. Possible TIA resolved, asymptomatic, no neuro deficits CT scan of head - negative neuro checks q6hr monitor tele for atrial fibrillation c/w baby asa daily consider adding statin in am (TC 149, LDL44, HDL 91, triglycerides 67) Neurology- Dr. Lomas consulted MRA of brain ordered and pending 2. ESRD secondary to Polycystic Kidney Disease needs inpatient HD arranged for Saturday Renal- Dr. Caitie Rizvi consulted 3.. Anemia of Chronic Disease MCV 103, MCH 34 c/w iron 4. Hypertension controlled c/w amlodipine 5. R/O COVID follow up on nasal swab sent 04/26 maintain strict isolation and droplet precautions maintain 02 sat >90% DVT Prophylaxis SCD's FEN no IVF indicated, inpatient HD to be arranged for Saturday BMP daily, replete electrolytes as needed renal , low sodium diet Visit type - Emergency Visit Emergency Visit: Yes ED Registration Date: 04/26/20 Care time: The patient presented to the Emergency Department on the above date and was hospitalized for further evaluation of their emergent condition. - New Patient This patient is new to me today: Yes Date on this admission: 04/27/20 - Critical Care Critical Care patient: No
[2020-04-26] MEDS ORDERED: ATORVASTATIN CA 40 MG TABLET (FP) PO ONE (19:51)
[2020-04-26] MEDS ORDERED: ATORVASTATIN CA 40 MG TABLET (FP) ONE (20:47)
--- NOTE | 2020-04-26 23:55 | PDOC ---
*Physical Exam - Vital Signs Last Vital Signs Temp Pulse Resp BP Pulse Ox 98.6 F 70 17 144/79 100 04/26/20 20:55 04/26/20 23:04 04/26/20 23:04 04/26/20 23:04 04/26/20 23:04 - Physical Exam Received the patient at sign out Patient at the time of sign out had a pending admission. ED Treatment Course - LABORATORY CBC & Chemistry Diagram: 04/27/20 06:05 04/27/20 06:05 - ADDITIONAL ORDERS Additional order review: Laboratory Results 04/26/20 04/26/20 04/26/20 18:05 18:05 18:05 PT with INR 10.90 INR 0.92 PTT (Actin FS) 32.0 Sodium 140 Potassium 5.5 H Chloride 105 Carbon Dioxide 24 Anion Gap 11 BUN 57.0 H Creatinine 7.9 H* Est GFR (CKD-EPI)AfAm 5.95 Est GFR (CKD-EPI)NonAf 5.13 Random Glucose 102 Calcium 8.8 Total Bilirubin 0.2 AST 10 L ALT 16 Alkaline Phosphatase 51 Creatine Kinase 68 Troponin I < 0.02 Total Protein 6.9 Albumin 3.6 Triglycerides 67 Cholesterol 149 Total LDL Cholesterol 44 HDL Cholesterol 91 H Blood Type O POSITIVE Antibody Screen Negative 04/26/20 18:05 RBC 3.16 L MCV 103.2 H MCHC 33.1 RDW 14.0 MPV 10.2 Neutrophils % 70.9 Lymphocytes % 16.5 Monocytes % 8.9 Eosinophils % 3.0 Basophils % 0.7 - Medications Given in the ED: ED Medications Discontinued Medications Generic Name Dose Route Start Last Admin Trade Name Freq PRN Reason Stop Dose Admin Atorvastatin Calcium 40 mg 04/26/20 19:51 04/26/20 20:53 Lipitor - PO 04/26/20 19:52 40 mg ONCE ONE Administration Medical Decision Making - Medical Decision Making Spoke to Dr. Lomas. Per Dr. Lomas, the patient likely does not have a CVA and given her dialysis treatment can cause transient neurological symptoms. Patient to be admitted for TIA. Patient was accepted for admission by [facility]. Discharge - Discharge Information Problems reviewed: Yes Clinical Impression/Diagnosis: End stage chronic kidney disease, Hyperkalemia, Facial weakness - Follow up/Referral - Patient Discharge Instructions - Post Discharge Activity
[2020-04-27 06:39] LABS: HEMATOCRIT 34.1 % (32.4-45.2); MCH 33.4 pg (25.7-33.7); MCHC 32.3 g/dl (32.0-36.0); MEAN CELL VOLUME 103.5 fl (80-96); PLATELET COUNT 158 K/MM3 (134-434); RBC 3.29 M/mm3 (3.60-5.2); WHITE BLOOD COUNT 3.9 K/mm3 (4.0-10.0)
[2020-04-27 06:52] LABS: BLOOD UREA NITROGEN 62.7 mg/dL (7-18); CALCIUM 8.4 mg/dL (8.5-10.1); PHOSPHOROUS 5.9 mg/dL (2.5-4.9)
[2020-04-27 07:28] LABS: CREATININE 8.2 mg/dL (0.55-1.3)
--- NOTE | 2020-04-27 08:41 | CONSULT ---
Consult - text type - Consultation Consultation Note: NEUROLOGY CHIEF COMPLAINT: Left sided droop PCP:Dr. Ana Maria Human Resources Project Manager: Dr. Lavern Maria HISTORY OF PRESENT ILLNESS: 55 year old female with a past medical history of polycystic kidney disease on hemodialysis- (//Sat) and hypertension who presented on day of admission by ambulance for evaluation of left sided facial droop. Per patient, she was at her dialysis center on day of admission when staff noticed a left sided lower facial droop. The patient herself did not notice this. Patient stated that she went to the bathroom to take a look and she did not feel that she had a droop. She did not have dialysis on day of admission as reported . EMS was called and patient was brought into the ED. Patient reported she had never had a stroke before and denied weakness/numbness/tingling, vision changes or headache, chest pain/shortness of breath/abdominal pain/leg swelling/diarrhea/dysuria. CT of head reviewed and showed no acute intracranial pathology and prominent atherosclerotic calcifications along cavernous carotid arteries w/o significant interval change in comparison with prior CT exam of 11/09/11. MRI brain ordered, I modified to stroke protocal as DWI/ADC would be sufficient. Patient reports being at baseline and droop may just have been secondary to metabolic disturbances her volume shifting during dialysis. patient is on aspirin 81 mg daily. Recent Travel: no PAST MEDICAL HISTORY: polycystic kidney disease hypertension PAST SURGICAL HISTORY: denies Family History Mother had PA ,stroke and polycystic kidney disease. Father from natural causes. Social History: Smoking:never Alcohol:no Drugs: no REVIEW OF SYSTEMS CONSTITUTIONAL: Absent: fever, chills, diaphoresis, generalized weakness, malaise, loss of appetite, weight change HEENT: Absent: rhinorrhea, nasal congestion, throat pain, throat swelling, difficulty swallowing, mouth swelling, ear pain, eye pain, visual changes CARDIOVASCULAR: Absent: chest pain, syncope, palpitations, irregular heart rate, lightheadedness, peripheral edema RESPIRATORY: Absent: cough, shortness of breath, dyspnea with exertion, orthopnea, wheezing, stridor, hemoptysis GASTROINTESTINAL: Absent: abdominal pain, abdominal distension, nausea, vomiting, diarrhea, constipation, melena, hematochezia GENITOURINARY: Absent: dysuria, frequency, urgency, hesitancy, hematuria, flank pain, genital pain MUSCULOSKELETAL: Absent: myalgia, arthralgia, joint swelling, back pain, neck pain SKIN: Absent: rash, itching, pallor HEMATOLOGIC/IMMUNOLOGIC: Absent: easy bleeding, easy bruising, lymphadenopathy, frequent infections ENDOCRINE: Absent: unexplained weight gain, unexplained weight loss, heat intolerance, cold intolerance NEUROLOGIC: Absent: headache, focal weakness or paresthesias, dizziness, unsteady gait, seizure, mental status changes, bladder or bowel incontinence PSYCHIATRIC: Absent: anxiety, depression, suicidal or homicidal ideation, hallucinations. Allergies No Known Allergies Allergy (Verified 05/04/19 14:21) HOME MEDICATIONS: Home Medications Medication Instructions Recorded Iron Ps Complex/B12/Folic Acid 1 each PO DAILY 11/09/11 [Ferrex 150 Forte Capsule] Amlodipine Besylate 5 mg PO DAILY 12/20/17 Active Medications Amlodipine Besylate (Norvasc -) 5 mg PO DAILY THUAN Aspirin (Ecotrin -) 81 mg PO DAILY THUAN B12/Folic Ac/Intrin Fact/Iron/Vit C (Niferex-150 Forte -) 1 each PO DAILY THUAN PHYSICAL EXAMINATION Vital Signs Period Temp Pulse Resp BP Sys/Pittman Pulse Ox Last 24 Hr 98.0 F-98.6 F 64-83 15-20 120-145/62-82 96-100 General no acute distress, awake, alert Neuro: nno facial droop noted, cranial nerves intact, strength 5/5 in upper and lower extremities bilaterally, sensory intact to light touch, finger to nose intact Lungs CTA nonlabored breathing effort no rales no wheezing Heart s1s2 rate regular and normal Abdomen soft nontender nondistended Extremities warm tot ouch no pitting edema no cyanosis CBCD WBC 3.9 K/mm3 (4.0-10.0) L 04/27/20 06:05 RBC 3.29 M/mm3 (3.60-5.2) L 04/27/20 06:05 Hgb 11.0 GM/dL (10.7-15.3) 04/27/20 06:05 Hct 34.1 % (32.4-45.2) 04/27/20 06:05 MCV 103.5 fl (80-96) H 04/27/20 06:05 MCHC 32.3 g/dl (32.0-36.0) 04/27/20 06:05 RDW 14.0 % (11.6-15.6) 04/27/20 06:05 Plt Count 158 K/MM3 (134-434) 04/27/20 06:05 MPV 10.0 fl (7.5-11.1) 04/27/20 06:05 CMP Sodium 142 mmol/L (136-145) 04/27/20 06:05 Potassium 5.0 mmol/L (3.5-5.1) 04/27/20 06:05 Chloride 109 mmol/L (98-107) H 04/27/20 06:05 Carbon Dioxide 22 mmol/L (21-32) 04/27/20 06:05 Anion Gap 11 MMOL/L (8-16) 04/27/20 06:05 BUN 62.7 mg/dL (7-18) H 04/27/20 06:05 Creatinine 8.2 mg/dL (0.55-1.3) H* 04/27/20 06:05 Random Glucose 85 mg/dL (74-106) 04/27/20 06:05 Calcium 8.4 mg/dL (8.5-10.1) L 04/27/20 06:05 Total Bilirubin 0.2 mg/dL (0.2-1) 04/26/20 18:05 AST 10 U/L (15-37) L 04/26/20 18:05 ALT 16 U/L (13-61) 04/26/20 18:05 Alkaline Phosphatase 51 U/L (45-117) 04/26/20 18:05 Total Protein 6.9 g/dl (6.4-8.2) 04/26/20 18:05 Albumin 3.6 g/dl (3.4-5.0) 04/26/20 18:05 CARDIAC ENZYMES Creatine Kinase 68 U/L (26-192) 04/26/20 18:05 Troponin I < 0.02 ng/ml (0.00-0.05) 04/26/20 18:05 ASSESSMENT/PLAN: 55 year old female with a past medical history of polycystic kidney disease on hemodialysis- (//Sat) and hypertension who presented on day of admission by ambulance for evaluation of left sided facial droop. Per patient, she was at her dialysis center on day of admission when staff noticed a left sided lower facial droop. Patient stated that she went to the bathroom to take a look and she did not feel that she had a droop. She did not have dialysis on day of admission as reported . EMS was called and patient was brought into the ED. Patient reported she had never had a stroke before and denied weakness/numbness/tingling, vision changes or headache, chest pain/shortness of breath/abdominal pain/leg swelling/diarrhea/dysuria. CT of head reviewed and showed no acute intracranial pathology and prominent atherosclerotic calcifications along cavernous carotid arteries w/o significant interval change in comparison with prior CT exam of 11/09/11. MRI brain ordered, I modified to stroke protocal as DWI/ADC would be sufficient. Patient reports being at baseline and droop may just have been secondary to metabolic disturbances her volume shifting during dialysis. Patient is on aspirin 81 mg daily. monitor blood pressure, maintain normotensive range, follow-up renal consult, hemodialysis as per research epidemiologist. Neurologically otherwise stable and at baseline.
--- NOTE | 2020-04-27 09:20 | EKG ---
Test Reason : Blood Pressure : / mmHG Vent. Rate : 075 BPM Atrial Rate : 075 BPM P-R Int : 172 ms QRS Dur : 082 ms QT Int : 378 ms P-R-T Axes : 054 -38 033 degrees QTc Int : 422 ms NORMAL SINUS RHYTHM POSSIBLE LEFT ATRIAL ENLARGEMENT LEFT AXIS DEVIATION LOW VOLTAGE QRS INFERIOR INFARCT , AGE UNDETERMINED CANNOT RULE OUT ANTERIOR INFARCT (CITED ON OR BEFORE 13-APR-2010) ABNORMAL ECG WHEN COMPARED WITH ECG OF 20-DEC-2017 16:33, QRS AXIS SHIFTED LEFT INFERIOR INFARCT IS NOW PRESENT Confirmed by MD DAYRON, MAIDA ([id number]) on 04/27/2020 9:19:47 AM Referred By: Confirmed By:MAIDA PADGETT MD
[2020-04-27] MEDS ORDERED: FE POLYSAC/CYANOCOBAL/FA COMBO CAPSULE PO SCH (10:00)
[2020-04-27] MEDS ORDERED: amLODIPine BESYLATE 5 MG TABLET (FP) PO SCH (10:00)
[2020-04-27] MEDS ORDERED: ASPIRIN COATED 81 MG TABLET.EC PO SCH (10:00)
[2020-04-27] MEDS ORDERED: SODIUM CHLORIDE 250 ML IV PRN (10:24)
--- NOTE | 2020-04-27 10:26 | CONSULT ---
Consult Consult Specialty:: Nephrology Reason for Consultation:: ESRD - History of Present Illness Chief Complaint: sent in for facial droop History of Present Illness: Pt is a 55 year old female with pmhx of esrd, htn, pkd who presents for evaluation of left facial droop. I was called to evaluate her as she has esrd and missed HD yesterday. SHe says that she feels well. She denies fevers or chills. SHe denies shortness of breath. She had an mri that was negative for cva. She is eager to go home. - History Source History Provided By: Patient, Medical Record - Past Medical History Cardio/Vascular: Yes: HTN Renal/: Yes: Hemodialysis - Alcohol/Substance Use Hx Alcohol Use: No - Smoking History Smoking history: Never smoked Have you smoked in the past 12 months: No Aproximately how many cigarettes per day: 0 Home Medications - Allergies Allergies/Adverse Reactions: Allergies Allergy/AdvReac Type Severity Reaction Status Date / Time No Known Allergies Allergy Verified 05/04/19 14:21 - Home Medications Home Medications: Ambulatory Orders Iron Ps Complex/B12/Folic Acid [Ferrex 150 Forte Capsule] 1 each PO DAILY 11/09/11 Amlodipine Besylate 5 mg PO DAILY 12/20/17 Aspirin Coated [Ecotrin -] 81 mg PO DAILY #30 tablet.ec 04/27/20 Family Medical History Family History: Denies Review of Systems - Review of Systems Constitutional: reports: No Symptoms Eyes: reports: No Symptoms HENT: reports: No Symptoms Neck: reports: No Symptoms Cardiovascular: reports: No Symptoms Respiratory: reports: No Symptoms Gastrointestinal: reports: No Symptoms Genitourinary: reports: No Symptoms Musculoskeletal: reports: No Symptoms Integumentary: reports: No Symptoms Neurological: reports: Other (left facial droop) Hematology/Lymphatic: reports: No Symptoms Psychiatric: reports: No Symptoms Physical Exam Vital Signs: Vital Signs Temperature 98.2 F 04/27/20 05:25 Pulse Rate 64 04/27/20 05:25 Respiratory Rate 16 04/27/20 05:25 Blood Pressure 126/79 04/27/20 05:25 O2 Sat by Pulse Oximetry (%) 96 04/27/20 05:25 Constitutional: Yes: Calm Eyes: Yes: Conjunctiva Clear HENT: Yes: Atraumatic Neck: Yes: Supple Cardiovascular: Yes: S1, S2 Gastrointestinal: Yes: Soft Renal/: Yes: WNL Musculoskeletal: Yes: WNL Edema: No Neurological: Yes: Other (left facial droop) Labs: CBC, BMP 04/27/20 06:05 04/27/20 06:05 Imaging - Results MRI: Report Reviewed Assessment/Plan Current Medications Generic Name Dose Route Start Last Admin Trade Name Freq PRN Reason Stop Dose Admin Amlodipine Besylate 5 mg 04/27/20 10:00 Norvasc - PO DAILY THUAN Aspirin 81 mg 04/27/20 10:00 Ecotrin - PO DAILY THUAN B12/Folic Ac/Intrin Fact/Iron/Vit C 1 each 04/27/20 10:00 Niferex-150 Forte - PO DAILY [facility] Sodium Chloride 250 mls @ 3,000 mls/hr 04/27/20 10:24 Normal Saline - IV 04/28/20 10:24 PRN PRN Hypotension during Dialysis Impression 1. ESRD 2. missed hd 3. hyperkalemia 4. htn 5. PKD 6. left facial droop Plan - potassium improved - will arrange for HD today - mri negative - resume home meds - rest per primary team
[2020-04-27 11:27] VITALS: TEMP 98.4
--- NOTE | 2020-04-27 11:53 | DS ---
Physical Examination Vital Signs: Vital Signs Temperature 98.4 F 04/27/20 11:00 Pulse Rate 68 04/27/20 11:10 Respiratory Rate 18 04/27/20 11:10 Blood Pressure 149/79 04/27/20 11:10 O2 Sat by Pulse Oximetry (%) 96 04/27/20 05:25 Constitutional: Yes: No Distress, Calm Cardiovascular: Yes: Regular Rate and Rhythm Respiratory: Yes: CTA Bilaterally Gastrointestinal: Yes: Normal Bowel Sounds, Soft. No: Tenderness Edema: No Labs: CBC, BMP 04/27/20 06:05 04/27/20 06:05 Discharge Summary Problems reviewed: Yes Reason For Visit: TRANSIENT ISCHEMIC ATTACK Current Active Problems End stage chronic kidney disease (Acute) Facial weakness (Acute) Hyperkalemia (Acute) Hospital Course: PCP:Dr. Ana Maria Clubhouse Attendant: Dr. Lavern Maria HISTORY OF PRESENT ILLNESS: 55 year old female with a past medical history of polycystic kidney disease on h emodialysis- (//Sat) and hypertension who presented today by ambulance for evaluation of left sided facial droop. Per patient, she was at her dialysis center today when staff noticed a left sided lower facial droop. Patient states that she went to the bathroom to take a look and she did not feel that she had a droop. She did not have dialysis today as reported . EMS was called and patient brought into the ED. Patient reported she had never had a stroke before and denied weakness/numbness/tingling, vision changes or headache, chest pain/shortness of breath/abdominal pain/leg swelling/diarrhea/dysuria. ER course workup: (1) CT scan of head negative (2) Lab findings notable for creatinine 7.9 , potassium 5.5. MRI brain-- negative infarct seen by Neurology-- clinically stable pt started on ASA Pt was also seen by Renal --> pt had dialysis today stable for dc home Condition: Improved - Instructions Diet, Activity, Other Instructions: Letter for work-- please excuse patient from work 04/26- 04/28. She will return on 04/29/2020, no restrictions Referrals: Ana Ovalles MD [Primary Care Provider] - Disposition: HOME - Home Medications Comprehensive Discharge Medication List: Ambulatory Orders Iron Ps Complex/B12/Folic Acid [Ferrex 150 Forte Capsule] 1 each PO DAILY 11/09/11 Amlodipine Besylate 5 mg PO DAILY 12/20/17 Aspirin Coated [Ecotrin -] 81 mg PO DAILY #30 tablet.ec 04/27/20
[2020-04-27 14:19] VITALS: BP 112/54; PULSE 55
[2020-04-28 18:07] LABS: HEP B CORE AB, TOT Negative (Negative)
== END 2020-04-27 14:20 | disposition home or self-care (01) | DRG 69 ==
LOC: JER 16:30 → JERBED 19:46
PROVIDERS: ADMIT Internal Medicine; ATTEND Internal Medicine
PROC: 5A1D70Z Performance of Urinary Filtration, Intermittent, Less than 6 Hours Per Day (ICD-10-PCS; principal; 2020-04-27)
DX: G45.9 Transient cerebral ischemic attack, unspecified (principal); N18.6 End stage renal disease; I12.0 Hypertensive chronic kidney disease with stage 5 chronic kidney disease or end stage renal disease; Q61.3 Polycystic kidney, unspecified; E87.5 Hyperkalemia; Z99.2 Dependence on renal dialysis; D63.1 Anemia in chronic kidney disease
CPT/HCPCS: 36415; 70450-TC; 70551-TC; 80048; 80053; 80061; 82550; 83721; 83735; 84100; 84484; 85025; 85027; 85610; 85730; 86704; 86706; 86707; 86708; 86709; 86803; 86850; 86900; 86901; 87340; 93005; 93010; 99285-25

== ENCOUNTER 2020-08-29 12:13 | Emergency (ER) | payer OTHER ==
[2020-08-29 12:22] VITALS: BP 153/89; PULSE 113; TEMP 99.8; BMI 22.1
[2020-08-29] MEDS ORDERED: ACETAMINOPHEN 500 MG TABLET (FP) PO ONE (14:02)
[2020-08-29 15:19] LABS: POTASSIUM 4.5 mmol/L (3.5-5.1)
[2020-08-29 15:21] LABS: BLOOD UREA NITROGEN 61.4 mg/dL (7-18); CALCIUM 9.6 mg/dL (8.5-10.1)
[2020-08-29 15:22] LABS: MAGNESIUM 2.6 mg/dL (1.8-2.4)
[2020-08-29 15:26] LABS: PHOSPHOROUS 6.2 mg/dL (2.5-4.9)
[2020-08-29 15:46] LABS: CREATININE 8.1 mg/dL (0.55-1.3)
== END 2020-08-29 16:11 | disposition home or self-care (01) ==
LOC: JER 12:13
DX: U07.1 COVID-19 (principal); N18.6 End stage renal disease
CPT/HCPCS: 36415; 71045-TC-FY; 80048; 83735; 84100; 99284-25; C9803; U0003

== ENCOUNTER 2020-08-31 19:18 | Inpatient (IN) | payer OTHER ==
[2020-08-31] MEDS ORDERED: SODIUM CHLORIDE 0.9% 500 ML INFUS.BAG IV ONE (19:57)
[2020-08-31 20:13] VITALS: BMI 21.7
[2020-08-31 21:09] LABS: HEMATOCRIT 32.4 % (32.4-45.2); HEMOGLOBIN 10.9 GM/dL (10.7-15.3); MCH 34.5 pg (25.7-33.7); MCHC 33.7 g/dl (32.0-36.0); MEAN CELL VOLUME 102.3 fl (80-96); MEAN PLT VOLUME 10.2 fl (7.5-11.1); PLATELET COUNT 182 K/MM3 (134-434); RBC 3.17 M/mm3 (3.60-5.2); RDW 13.1 % (11.6-15.6); WHITE BLOOD COUNT 5.3 K/mm3 (4.0-10.0)
[2020-08-31 21:31] LABS: CHLORIDE 95 mmol/L (98-107); POTASSIUM 3.6 mmol/L (3.5-5.1); SODIUM 135 mmol/L (136-145)
[2020-08-31 21:35] LABS: CALCIUM 8.2 mg/dL (8.5-10.1)
[2020-08-31 21:36] LABS: ALBUMIN 3.6 g/dl (3.4-5.0); ANION GAP 9 MMOL/L (8-16); CO2 31 mmol/L (21-32); GLUCOSE,RANDOM 117 mg/dL (74-106); MAGNESIUM 2.1 mg/dL (1.8-2.4)
[2020-08-31 21:39] LABS: CREATININE 5.2 mg/dL (0.55-1.3); PHOSPHOROUS 3.8 mg/dL (2.5-4.9); SGOT/AST 18 U/L (15-37); SGPT/ALT 20 U/L (13-61)
[2020-08-31 21:40] LABS: BILIRUBIN,TOTAL 0.4 mg/dL (0.2-1); LDH 144 U/L (84-246)
[2020-08-31 21:41] LABS: TOT PROT 6.9 g/dl (6.4-8.2)
[2020-08-31 21:42] LABS: ALK PHOS 58 U/L (45-117); N-TERMINAL BNP 971.3 pg/ml (5-125)
[2020-08-31 21:48] LABS: BLOOD UREA NITROGEN 35.2 mg/dL (7-18)
[2020-08-31] MEDS ORDERED: ACETAMINOPHEN 1000 MG/100 ML VIAL (NON FORMULARY) IVPB ONE (22:01)
[2020-08-31] MEDS ORDERED: ACETAMINOPHEN INJECTION 100 ML IVPB ONE (22:19)
[2020-08-31 23:53] LABS: EPI CELLS 9 /uL (0-25.1); HYALINE CASTS 0 /uL (0-3.1); URINE APPEARANCE CLEAR; URINE BACTERIA 21 /uL (0-1359); URINE BILIRUBIN NEGATIVE (NEGATIVE); URINE COLOR YELLOW; URINE GLUCOSE (UA) NEGATIVE (NEGATIVE); URINE KETONE NEGATIVE (NEGATIVE); URINE LEUK ESTERASE TRACE (NEGATIVE); URINE NITRITE NEGATIVE (NEGATIVE); URINE PROTEIN 2+ (NEGATIVE); URINE RBC 19 /uL (0-23.9); URINE UROBILINOGEN 0.2 mg/dL (0.2-1.0); URINE WBC 11 /uL (0-25.8)
[2020-09-01] MEDS ORDERED: ACETAMINOPHEN 325 MG TABLET (FP) PO PRN (00:08)
[2020-09-01] MEDS ORDERED: SODIUM CHLORIDE 500 ML IV STA (01:36)
[2020-09-01] MEDS ORDERED: HEPARIN NA (PORCINE) 5,000 UNITS/ML 1ML VIAL ONE ×2 (06:22→15:03)
[2020-09-01] MEDS: HEPARIN NA (PORCINE) 5,000 UNITS/ML 1ML VIAL SQ SCH ×2 (06:29→14:59)
[2020-09-01 07:50] LABS: CHLORIDE 101 mmol/L (98-107); POTASSIUM 3.7 mmol/L (3.5-5.1); SODIUM 139 mmol/L (136-145)
[2020-09-01 07:59] LABS: ALBUMIN 3.2 g/dl (3.4-5.0); ANION GAP 9 MMOL/L (8-16); BLOOD UREA NITROGEN 45.4 mg/dL (7-18); CO2 29 mmol/L (21-32); GLUCOSE,RANDOM 77 mg/dL (74-106); MAGNESIUM 2.4 mg/dL (1.8-2.4)
[2020-09-01 08:02] LABS: CREATININE 6.2 mg/dL (0.55-1.3); PHOSPHOROUS 6.5 mg/dL (2.5-4.9); SGOT/AST 13 U/L (15-37); SGPT/ALT 18 U/L (13-61)
[2020-09-01 08:03] LABS: BILIRUBIN,TOTAL 0.9 mg/dL (0.2-1)
[2020-09-01 08:04] LABS: TOT PROT 6.3 g/dl (6.4-8.2)
[2020-09-01 08:05] LABS: ALK PHOS 52 U/L (45-117)
[2020-09-01 08:10] LABS: BASO % 0.7 % (0-2.0); EOS % 3.2 % (0-4.5); HEMATOCRIT 30.2 % (32.4-45.2); HEMOGLOBIN 10.1 GM/dL (10.7-15.3); LYMPH % 23.9 % (8-40); MCH 34.1 pg (25.7-33.7); MCHC 33.4 g/dl (32.0-36.0); MEAN PLT VOLUME 10.1 fl (7.5-11.1); MONO % 9.2 % (3.8-10.2); PLATELET COUNT 165 K/MM3 (134-434); RBC 2.96 M/mm3 (3.60-5.2); RDW 12.9 % (11.6-15.6); WHITE BLOOD COUNT 3.9 K/mm3 (4.0-10.0)
[2020-09-01 09:09] VITALS: TEMP 98
[2020-09-01] MEDS ORDERED: ASPIRIN COATED 81 MG TABLET.EC ONE (09:12)
[2020-09-01] MEDS ORDERED: amLODIPine BESYLATE 5 MG TABLET (FP) ONE (09:12)
[2020-09-01 09:48] LABS: ERYTHROCYTE SEDIMENTATION RATE 11 mm/hr (0-30)
[2020-09-01] MEDS ORDERED: amLODIPine BESYLATE 5 MG TABLET (FP) PO SCH (10:00)
[2020-09-01] MEDS ORDERED: FE POLYSAC/CYANOCOBAL/FA COMBO CAPSULE PO SCH (10:00)
[2020-09-01] MEDS ORDERED: B12 PO SCH (10:00)
[2020-09-01] MEDS ORDERED: FOLIC ACID PO SCH (10:00)
[2020-09-01] MEDS ORDERED: ASPIRIN COATED 81 MG TABLET.EC PO SCH (10:00)
[2020-09-01] MEDS ORDERED: IRON PS COMPLEX PO SCH (10:00)
[2020-09-01] MEDS ORDERED: [UNRECOGNIZED DRUG - OTHER] PO SCH (10:00)
[2020-09-01] MEDS ORDERED: ACETAMINOPHEN 325 MG TABLET (FP) ONE (15:32)
[2020-09-01 17:32] VITALS: BP 148/74; PULSE 78
== END 2020-09-01 18:20 | disposition home or self-care (01) | DRG 308 ==
LOC: JER 19:18 → JERBED 22:22 → J5S 09-01 17:38
PROVIDERS: ADMIT Internal Medicine; ATTEND Internal Medicine
DX: R00.0 Tachycardia, unspecified (principal); N18.6 End stage renal disease; E87.1 Hypo-osmolality and hyponatremia; Q61.3 Polycystic kidney, unspecified; I12.0 Hypertensive chronic kidney disease with stage 5 chronic kidney disease or end stage renal disease; R53.1 Weakness; D63.1 Anemia in chronic kidney disease
CPT/HCPCS: 36415; 71045-TC-FY; 80053; 81003; 82550; 82728; 83615; 83735; 83880; 84100; 84443; 84484; 85025; 85027; 85379; 85651; 86140; 87086; 87804; 93005; 93010; 99285-25; C9803; J0131; J1644; U0003

== ENCOUNTER 2021-11-28 20:24 | Observation (INO) | payer OTHER ==
[2021-11-28 21:05] VITALS: TEMP 98.1; BMI 25.7
[2021-11-28 22:12] LABS: BASO % 0.6 % (0-2.0); HEMATOCRIT 34.6 % (32.4-45.2); HEMOGLOBIN 11.2 GM/dL (10.7-15.3); LYMPH % 9.1 % (8-40); MCH 32.7 pg (25.7-33.7); MCHC 32.4 g/dl (32.0-36.0); MEAN PLT VOLUME 9.6 fl (7.5-11.1); MONO % 6.5 % (3.8-10.2); NEUT % 80.8 % (42.8-82.8); PLATELET COUNT 177 10^3/uL (134-434); RBC 3.42 M/mm3 (3.60-5.2); WHITE BLOOD COUNT 3.9 K/mm3 (4.0-10.0)
[2021-11-28 22:32] LABS: CALCIUM 8.7 mg/dL (8.5-10.1)
[2021-11-28 22:33] LABS: ALBUMIN 3.7 g/dl (3.4-5.0); BLOOD UREA NITROGEN 35.1 mg/dL (7-18); MAGNESIUM 2.3 mg/dL (1.8-2.4)
[2021-11-28 22:36] LABS: CREATININE 5.4 mg/dL (0.55-1.3)
[2021-11-28 22:37] LABS: BILIRUBIN,TOTAL 0.4 mg/dL (0.2-1); TOT PROT 6.8 g/dl (6.4-8.2)
[2021-11-28] MEDS ORDERED: SODIUM CHLORIDE 1,000 ML IV SCH (23:45)
[2021-11-28] MEDS ORDERED: PIPERACILLIN/TAZOB 2.25 GM 2.25 GM in DEXTROSE 5%-WATER - 50 ML IVPB ONE (23:48)
[2021-11-29] MEDS ORDERED: PIPERACILLIN/TAZOB 2.25 GM 2.25 GM/50 ML BAG IVPB ONE (00:02)
[2021-11-29 08:37] LABS: BASO % 1.2 % (0-2.0); EOS % 5.1 % (0-4.5); HEMOGLOBIN 11.2 GM/dL (10.7-15.3); LYMPH % 17.6 % (8-40); MCH 34.1 pg (25.7-33.7); MCHC 33.8 g/dl (32.0-36.0); MEAN CELL VOLUME 100.9 fl (80-96); MONO % 6.3 % (3.8-10.2); NEUT % 69.8 % (42.8-82.8); PLATELET COUNT 163 10^3/uL (134-434); RBC 3.27 M/mm3 (3.60-5.2); RDW 13.7 % (11.6-15.6); WHITE BLOOD COUNT 2.9 K/mm3 (4.0-10.0)
[2021-11-29] MEDS ORDERED: ASPIRIN COATED 81 MG TABLET.EC ONE (08:47)
[2021-11-29] MEDS ORDERED: amLODIPine BESYLATE 10 MG TABLET (FP) ONE (08:47)
[2021-11-29] MEDS: SEVELAMER CARBONATE 800 MG TAB (FP) PO SCH ×2 (08:49→12:59)
[2021-11-29 09:15] LABS: CALCIUM 8.5 mg/dL (8.5-10.1)
[2021-11-29 09:16] LABS: BLOOD UREA NITROGEN 42.9 mg/dL (7-18); MAGNESIUM 2.5 mg/dL (1.8-2.4)
[2021-11-29 09:19] LABS: CREATININE 6.9 mg/dL (0.55-1.3)
[2021-11-29] MEDS ORDERED: VITAMIN B COMP W-C 1 EA TABLET (NEPHRO-VITE) PO SCH (10:00)
[2021-11-29] MEDS ORDERED: FE POLYSAC/CYANOCOBAL/FA COMBO CAPSULE PO SCH (10:00)
[2021-11-29] MEDS ORDERED: amLODIPine BESYLATE 10 MG TABLET (FP) PO SCH (10:00)
[2021-11-29] MEDS ORDERED: ASPIRIN COATED 81 MG TABLET.EC PO SCH (10:00)
[2021-11-29] MEDS ORDERED: LOSARTAN POTASSIUM 50 MG TABLET PO SCH (10:15)
[2021-11-29 10:28] VITALS: BP 131/65; PULSE 69
[2021-11-29] MEDS ORDERED: LOSARTAN POTASSIUM 50 MG TABLET ONE (10:39)
== END 2021-11-29 13:01 | disposition home or self-care (01) ==
LOC: JER 20:24 → INTOOBSV 11-29 00:20 → JERBED 11-29 00:20
PROVIDERS: ADMIT Internal Medicine; ATTEND Internal Medicine
DX: R55 Syncope and collapse (principal); I12.0 Hypertensive chronic kidney disease with stage 5 chronic kidney disease or end stage renal disease; N18.6 End stage renal disease; Z99.2 Dependence on renal dialysis; D64.9 Anemia, unspecified; Z20.822 Contact with and (suspected) exposure to COVID-19; E28.2 Polycystic ovarian syndrome
CPT/HCPCS: 36415; 71045-TC-FY; 80048; 80053; 80061; 82550; 83735; 84439; 84443; 84484; 85025; 93005; 93010; 99285-25; C9803; G0378; U0003; U0005

== ENCOUNTER 2023-10-12 11:34 | Observation (INO) | payer OTHER ==
[2023-10-12] MEDS ORDERED: ACETAMINOPHEN 1000 MG/100 ML BAG IVPB ONE (12:40)
[2023-10-12 13:24] LABS: BASO % 0.5 % (0-2.0); EOS % 4.5 % (0-4.5); HEMATOCRIT 34.8 % (32.4-45.2); HEMOGLOBIN 11.3 GM/dL (10.7-15.3); LYMPH % 10.3 % (8-40); MCH 32.4 pg (25.7-33.7); MCHC 32.4 g/dl (32.0-36.0); MEAN CELL VOLUME 100.2 fl (80-96); MEAN PLT VOLUME 10.1 fl (7.5-11.1); MONO % 8.6 % (3.8-10.2); NEUT % 76.1 % (42.8-82.8); PLATELET COUNT 134 10^3/uL (134-434); RBC 3.47 M/mm3 (3.60-5.2); RDW 14.8 % (11.6-15.6); WHITE BLOOD COUNT 5.3 K/mm3 (4.0-10.0)
[2023-10-12 13:32] LABS: INR 0.94 (0.83-1.09); PROTHROMBIN TIME (PATIENT) 10.9 SEC (9.7-13.0)
[2023-10-12 13:34] LABS: ACTIVATED PTT 32.5 SECONDS (25.2-36.5)
[2023-10-12] MEDS ORDERED: ACETAMINOPHEN INJECTION 100 ML IVPB ONE (13:34)
[2023-10-12 13:50] LABS: CHLORIDE 102 mmol/L (98-107); SODIUM 139 mmol/L (136-145)
[2023-10-12 13:53] LABS: ALBUMIN 3.1 g/dl (3.4-5.0); ANION GAP 15 mmol/L (4-13); CALCIUM 9.4 mg/dL (8.5-10.1); CO2 22 mmol/L (21-32); GLUCOSE,RANDOM 97 mg/dL (74-106); MAGNESIUM 2.6 mg/dL (1.8-2.4)
[2023-10-12 13:56] LABS: SGPT/ALT 20 U/L (13-61)
[2023-10-12 13:57] LABS: BILIRUBIN,TOTAL 0.4 mg/dL (0.2-1); SGOT/AST 14 U/L (15-37)
[2023-10-12 13:58] LABS: TOT PROT 6.4 g/dl (6.4-8.2)
[2023-10-12 13:59] LABS: ALK PHOS 58 U/L (45-117)
[2023-10-12 14:00] LABS: BLOOD UREA NITROGEN 109.6 mg/dL (7-18); CREATININE 10.7 mg/dL (0.55-1.3)
[2023-10-12 15:46] LABS: EPI CELLS 1 /uL (0-25.1); HYALINE CASTS 0 /uL (0-3.1); URINE APPEARANCE CLEAR; URINE BACTERIA 6 /uL (0-1359); URINE BILIRUBIN NEGATIVE (NEGATIVE); URINE COLOR YELLOW; URINE GLUCOSE (UA) TRACE (NEGATIVE); URINE KETONE NEGATIVE (NEGATIVE); URINE LEUK ESTERASE NEGATIVE (NEGATIVE); URINE NITRITE NEGATIVE (NEGATIVE); URINE PROTEIN 3+ (NEGATIVE); URINE RBC 9 /uL (0-23.9); URINE UROBILINOGEN 0.2 mg/dL (0.2-1.0); URINE WBC 7 /uL (0-25.8)
[2023-10-13 00:45] VITALS: BMI 22.4
[2023-10-13] MEDS: ACETAMINOPHEN 325 MG TABLET (FP) PO PRN (06:31)
[2023-10-13 07:48] LABS: BASO % 0.6 % (0-2.0); EOS % 8.8 % (0-4.5); HEMATOCRIT 35.2 % (32.4-45.2); HEMOGLOBIN 11.3 GM/dL (10.7-15.3); LYMPH % 13.3 % (8-40); MCH 32.6 pg (25.7-33.7); MCHC 32.1 g/dl (32.0-36.0); MEAN CELL VOLUME 101.7 fl (80-96); MEAN PLT VOLUME 11.1 fl (7.5-11.1); MONO % 7.7 % (3.8-10.2); NEUT % 69.6 % (42.8-82.8); PLATELET COUNT 143 10^3/uL (134-434); RBC 3.47 M/mm3 (3.60-5.2); RDW 14.6 % (11.6-15.6); WHITE BLOOD COUNT 4.5 K/mm3 (4.0-10.0)
[2023-10-13 08:06] LABS: CHLORIDE 104 mmol/L (98-107); POTASSIUM 5.6 mmol/L (3.5-5.1); SODIUM 138 mmol/L (136-145)
[2023-10-13 08:12] LABS: ANION GAP 13 mmol/L (4-13); CO2 21 mmol/L (21-32); GLUCOSE,RANDOM 87 mg/dL (74-106)
[2023-10-13 08:31] LABS: BLOOD UREA NITROGEN 124.3 mg/dL (7-18); CREATININE 12.1 mg/dL (0.55-1.3)
[2023-10-13] MEDS: amLODIPine BESYLATE 10 MG TABLET (FP) PO SCH (09:10)
[2023-10-13] MEDS: SEVELAMER CARBONATE 800 MG TAB (FP) PO SCH ×3 (09:10→17:23)
[2023-10-13] MEDS: LOSARTAN POTASSIUM 50 MG TABLET PO SCH ×2 (09:10→22:05)
[2023-10-13] MEDS: LIDOCAINE 4% PATCH TP SCH (09:19)
[2023-10-13] MEDS: HEPARIN NA (PORCINE) 5,000 UNITS/ML 1ML VIAL SQ SCH ×2 (22:05→22:13)
[2023-10-13] MEDS: LIDOCAINE PATCH REMOVAL MC SCH (22:05)
[2023-10-13] MEDS ORDERED: SODIUM CHLORIDE 250 ML IV PRN (22:57)
[2023-10-14 00:13] LABS: HEMATOCRIT 31.7 % (32.4-45.2); HEMOGLOBIN 10.5 GM/dL (10.7-15.3); MCH 32.8 pg (25.7-33.7); MEAN CELL VOLUME 99.4 fl (80-96); MEAN PLT VOLUME 10.3 fl (7.5-11.1); PLATELET COUNT 136 10^3/uL (134-434); RBC 3.19 M/mm3 (3.60-5.2); RDW 14.5 % (11.6-15.6); WHITE BLOOD COUNT 4.8 K/mm3 (4.0-10.0)
[2023-10-14 00:31] LABS: CHLORIDE 102 mmol/L (98-107); POTASSIUM 5.6 mmol/L (3.5-5.1); SODIUM 139 mmol/L (136-145)
[2023-10-14 00:34] LABS: ANION GAP 15 mmol/L (4-13); CALCIUM 9.8 mg/dL (8.5-10.1); CO2 22 mmol/L (21-32); GLUCOSE,RANDOM 111 mg/dL (74-106)
[2023-10-14 00:35] LABS: ALBUMIN 2.9 g/dl (3.4-5.0)
[2023-10-14 00:36] LABS: PHOSPHOROUS 7.1 mg/dL (2.5-4.9); SGPT/ALT 16 U/L (13-61)
[2023-10-14 00:38] LABS: BILIRUBIN,TOTAL 0.2 mg/dL (0.2-1); SGOT/AST 6 U/L (15-37)
[2023-10-14 00:40] LABS: ALK PHOS 58 U/L (45-117)
[2023-10-14 00:42] LABS: BLOOD UREA NITROGEN 138.8 mg/dL (7-18); CREATININE 13.3 mg/dL (0.55-1.3)
[2023-10-14] MEDS ORDERED: SODIUM ZIRCONIUM CYCLOSILICATE (LOKELMA) 5 GM PACKET PO ONE (03:15)
[2023-10-14] MEDS: SEVELAMER CARBONATE 800 MG TAB (FP) PO SCH ×3 (08:15→17:32)
[2023-10-14] MEDS: LOSARTAN POTASSIUM 50 MG TABLET PO SCH ×2 (12:36→21:51)
[2023-10-14] MEDS: LIDOCAINE 4% PATCH TP SCH (12:36)
[2023-10-14] MEDS: HEPARIN NA (PORCINE) 5,000 UNITS/ML 1ML VIAL SQ SCH ×2 (12:38→21:51)
[2023-10-14] MEDS: amLODIPine BESYLATE 10 MG TABLET (FP) PO SCH (12:39)
[2023-10-14] MEDS ORDERED: SODIUM CHLORIDE 250 ML IV PRN (17:17)
[2023-10-14] MEDS: LIDOCAINE PATCH REMOVAL MC SCH (21:51)
[2023-10-14] MEDS: ACETAMINOPHEN 325 MG TABLET (FP) PO PRN (21:55)
[2023-10-15] MEDS: SEVELAMER CARBONATE 800 MG TAB (FP) PO SCH ×3 (08:11→16:30)
[2023-10-15 09:29] LABS: HEMATOCRIT 33.4 % (32.4-45.2); MCH 33.3 pg (25.7-33.7); MCHC 32.8 g/dl (32.0-36.0); MEAN CELL VOLUME 101.5 fl (80-96); MEAN PLT VOLUME 10.6 fl (7.5-11.1); PLATELET COUNT 155 10^3/uL (134-434); RDW 14.4 % (11.6-15.6)
[2023-10-15 09:48] LABS: CHLORIDE 101 mmol/L (98-107); POTASSIUM 4.7 mmol/L (3.5-5.1); SODIUM 140 mmol/L (136-145)
[2023-10-15 10:05] LABS: CALCIUM 9.5 mg/dL (8.5-10.1); GLUCOSE,RANDOM 170 mg/dL (74-106)
[2023-10-15 10:07] LABS: ANION GAP 11 mmol/L (4-13); CO2 28 mmol/L (21-32)
[2023-10-15 10:10] LABS: BLOOD UREA NITROGEN 70.4 mg/dL (7-18); CREATININE 8.7 mg/dL (0.55-1.3)
[2023-10-15] MEDS: amLODIPine BESYLATE 10 MG TABLET (FP) PO SCH (12:34)
[2023-10-15] MEDS: LOSARTAN POTASSIUM 50 MG TABLET PO SCH ×2 (12:35→22:01)
[2023-10-15] MEDS: LIDOCAINE 4% PATCH TP SCH (12:35)
[2023-10-15] MEDS: HEPARIN NA (PORCINE) 5,000 UNITS/ML 1ML VIAL SQ SCH ×2 (12:35→22:01)
[2023-10-15] MEDS: LIDOCAINE PATCH REMOVAL MC SCH (22:01)
[2023-10-16 08:06] VITALS: RESP 18
[2023-10-16] MEDS: SEVELAMER CARBONATE 800 MG TAB (FP) PO SCH (08:59)
[2023-10-16] MEDS: LIDOCAINE 4% PATCH TP SCH (10:50)
[2023-10-16] MEDS: amLODIPine BESYLATE 10 MG TABLET (FP) PO SCH (10:50)
[2023-10-16] MEDS: LOSARTAN POTASSIUM 50 MG TABLET PO SCH (10:50)
[2023-10-16] MEDS: HEPARIN NA (PORCINE) 5,000 UNITS/ML 1ML VIAL SQ SCH (10:51)
[2023-10-16 14:18] VITALS: BP 142/90; PULSE 88; TEMP 98.7
== END 2023-10-16 11:53 | disposition home or self-care (01) ==
LOC: JER 11:34 → JERBED 14:38 → J7W 22:10
PROVIDERS: ADMIT Internal Medicine; ATTEND Internal Medicine
PROC: 3E033NZ Introduction of Analgesics, Hypnotics, Sedatives into Peripheral Vein, Percutaneous Approach (ICD-10-PCS; principal; 2023-10-12)
PROC: 3E0337Z Introduction of Electrolytic and Water Balance Substance into Peripheral Vein, Percutaneous Approach (ICD-10-PCS; 2023-10-12)
DX: E11.22 Type 2 diabetes mellitus with diabetic chronic kidney disease (principal); I12.0 Hypertensive chronic kidney disease with stage 5 chronic kidney disease or end stage renal disease; N18.6 End stage renal disease; Z99.2 Dependence on renal dialysis; R10.9 Unspecified abdominal pain; Q61.3 Polycystic kidney, unspecified; D64.9 Anemia, unspecified; R07.89 Other chest pain; E87.5 Hyperkalemia; Z86.16 Personal history of COVID-19
CPT/HCPCS: 0241U-QW; 36415; 71045-TC-FY; 74177-TC; 80048; 80053; 81003; 83605; 83735; 84100; 84484; 85025; 85027; 85610; 85730; 86704; 86803; 87086; 87340; 87517; 93005; 93010; 93306-TC; 99285-25; G0378; J1644

== ENCOUNTER 2024-08-05 08:14 | Emergency (ER) | payer OTHER ==
[2024-08-05 08:41] VITALS: BP 167/88; PULSE 71; RESP 16; TEMP 98.1; BMI 20.1
== END 2024-08-05 09:09 | disposition home or self-care (01) ==
LOC: JER 08:14 → JERFT 08:14
DX: S40.822A Blister (nonthermal) of left upper arm, initial encounter (principal); X58.XXXA Exposure to other specified factors, initial encounter
CPT/HCPCS: 99283-25

== ENCOUNTER 2024-10-21 04:03 | Day surgery (SDC) | payer OTHER ==
[2024-10-16 11:01] VITALS: BMI 18.3
[2024-10-21] MEDS ORDERED: SUCCINYLCHOLINE CHLORIDE 200 MG/10 ML SYRINGE ONE (10:08)
[2024-10-21] MEDS ORDERED: HEPARIN NA (PORCINE) 5,000 UNITS/ML 1ML VIAL ONE ×2 (10:15→10:44)
[2024-10-21] MEDS ORDERED: LIDOCAINE HCL 1%, 10 MG/ML (20ML VIAL) ONE (10:15)
[2024-10-21] MEDS ORDERED: MIDAZOLAM HCL 2 MG/2 ML SINGLE DOSE VIAL ONE (10:42)
[2024-10-21] MEDS ORDERED: METOCLOPRAMIDE HCL INJECTION 10 MG/2 ML VIAL ONE (10:45)
[2024-10-21] MEDS ORDERED: GLYCOPYRROLATE 0.2 MG/1 ML VIAL ONE (10:45)
[2024-10-21] MEDS ORDERED: ACETAMINOPHEN INJECTION 100 ML ONE (10:45)
[2024-10-21] MEDS ORDERED: ONDANSETRON 4 MG/2 ML VIAL ONE (10:45)
[2024-10-21] MEDS ORDERED: ceFAZolin SODIUM 1 GM VIAL ONE (10:45)
[2024-10-21] MEDS ORDERED: KETAMINE HCL 200 MG/20 ML VIAL ONE (10:45)
[2024-10-21] MEDS: ceFAZolin SODIUM 1 GM VIAL IVPB ONE (10:50)
[2024-10-21] MEDS ORDERED: PROPOFOL 20 ML ONE (10:52)
[2024-10-21] MEDS: LIDOCAINE HCL 1%, 10 MG/ML (20ML VIAL) INF ONE (10:58)
[2024-10-21 11:48] VITALS: RESP 18
[2024-10-21 13:30] VITALS: BP 160/88; PULSE 84; TEMP 98
== END 2024-10-21 13:57 | disposition home or self-care (01) ==
LOC: JASU-SURG 04:03
PROVIDERS: ATTEND Surgery
PROC: 03723ZZ Dilation of Innominate Artery, Percutaneous Approach (ICD-10-PCS; principal; 2024-10-21 10:00)
DX: T82.858A Stenosis of other vascular prosthetic devices, implants and grafts, initial encounter (principal)
CPT/HCPCS: 36415; 76000-TC-FY; 84132; J0131; J1644